=== PATIENT | male | born 1960 ===

== ENCOUNTER 2024-08-17 15:58 | Inpatient (IN) | payer OTHER ==
--- NOTE | 2024-08-17 18:16 | RAD REPORT ---
EXAMINATION: ONE VIEW CHEST XR CLINICAL INDICATION: Male, 64 years old.,CHEST PAIN TECHNIQUE: Frontal chest projection is submitted. Examination is limited by patient positioning and t echnique. COMPARISON: 03/11/2013 FINDINGS: The lungs are well inflated and clear. No pneumothorax or sizable effusion. The heart is normal in s ize. Mediastinal contours are unremarkable. IMPRESSION: No acute intrathoracic abnormalities.
[2024-08-17 19:17] LABS: Absolute Eosinophils 0.2 K/uL (0-0.5); Absolute Lymphocytes (CBC) 1.7 K/uL (0.7-4.9); Absolute Monocytes 0.5 K/uL (0.1-1.3); Absolute Neutrophil 3.6 K/uL (1.8-8.0); Basophils % 0.6 % (0-1.3); Eosinophils % 2.5 % (0-4.4); Hematocrit 39.2 % (39.6-49.0); Hemoglobin 13.1 g/dL (13.6-17.9); Lymphocytes % 28.9 % (15.3-44.8); MCH 29.9 pg (27.0-35.0); MCHC 33.4 g/dL (32.0-36.0); MCV 89.5 fL (80-100); MPV 7.6 fL (7.6-11.3); Platelets 211 thou/uL (152-406); RBC Red Blood Cell Count 4.38 M/uL (4.33-5.43); Red Cell Distribution Width 13.5 % (12.1-15.2)
[2024-08-17 19:24] LABS: Anion Gap 7.1 mEq/L (5.0-15.0); Potassium 3.1 mEq/L (3.5-5.1); Troponin High Sensitivity 8.8 pg/mL (<58.9)
--- NOTE | 2024-08-17 19:29 | ER ---
Nurse's Notes [facility] Name: Poli Ryder Age: 64 yrs Sex: Male : 1960 Arrival Date: 08/17/2024 Time: 15:58 Bed 26 Private MD: Diagnosis: Atrial Fibrillation Presentation: 08/17 16:58 Chief complaint: Patient states: "Dr. Mcqueen sent me here for A-fib". Pt reports me1 palpitations and feeling lightheaded and dizzy. 16:58 Coronavirus screen: At this time, the client does not indicate any symptoms associated aa5 with coronavirus-19. Ebola Screen: Patient denies travel to an Ebola-affected area in the 21 days before illness onset. Initial Sepsis Screen: Does the patient meet any 2 criteria? No. Patient's initial sepsis screen is negative. Does the patient have a suspected source of infection? No. Patient's initial sepsis screen is negative. Risk Assessment: Do you want to hurt yourself or someone else? Patient reports no desire to harm self or others. Onset of symptoms was August 17, 2024. 16:58 Method Of Arrival: Ambulatory aa5 16:58 Acuity: RAY 2 aa5 Triage Assessment: 17:10 General: Appears comfortable, Behavior is calm, cooperative. Neuro: Level of aa5 Consciousness is awake, alert, obeys commands, Oriented to person, place, time, situation. Cardiovascular: Rhythm is regular. Respiratory: Airway is patent Respiratory effort is even, unlabored, Respiratory pattern is regular, symmetrical. Derm: Skin is pink, warm \\T\\ dry. Historical: - Allergies: 16:58 No Known Allergies; aa5 - PMHx: 16:59 Hypertensive disorder; Hypercholesterolemia; Gout; Prostate Cancer; aa5 - PSHx: 16:59 Prostate removed; aa5 - Immunization history:: Adult Immunizations unknown. - Infectious Disease History:: Denies. - Social history:: Smoking status: Patient denies any tobacco usage or history of. Screenin:30 [facility] ED Fall Risk Assessment (Adult) History of falling in the last 3 months, me1 including since admission No falls in past 3 months (0 pts) Confusion or Disorientation No (0 pts) Intoxicated or Sedated No (0 pts) Impaired Gait No (0 pts) Mobility Assist Device Used No (0 pt) Altered Elimination No (0 pt) Score/Fall Risk Level 0 - 2 = Low Risk Maintained a safe environment, Provided non-skid footwear, Hourly rounding (assess needs \\T\\ fall precautionary measures) done. Abuse screen: Denies threats or abuse. Nutritional screening: No deficits noted. Tuberculosis screening: No symptoms or risk factors identified. Assessment: 19:30 General: Appears comfortable, well groomed, well developed, well nourished, Behavior is me1 calm, cooperative, appropriate for age, Reports "Dr. Mcqueen sent me here for A-fib". Pt reports palpitations and feeling lightheaded and dizzy. Pain: Denies pain. Neuro: Level of Consciousness is awake, alert, obeys commands, Oriented to person, place, time, situation, Appropriate for age Reports dizziness. Cardiovascular: Reports palpitations, Patient's skin is warm and dry. Respiratory: Airway is patent Trachea midline Respiratory effort is even, unlabored, Respiratory pattern is regular, symmetrical. GI: No signs and/or symptoms were reported involving the gastrointestinal system. : No signs and/or symptoms were reported regarding the genitourinary system. EENT: No signs and/or symptoms were reported regarding the EENT system. Derm: Skin is intact, is healthy with good turgor, Skin is pink, warm \\T\\ dry. Musculoskeletal: No signs and/or symptoms reported regarding the musculoskeletal system. Vital Signs: 16:58 BP 149 / 90; Pulse 75; Resp 18 S; Temp 98.3(O); Pulse Ox 100% on R/A; Weight 97.52 kg aa5 (R); Height 5 ft. 9 in. (R); 19:15 BP 145 / 81; Pulse 73; Resp 12; Pulse Ox 100% ; me1 16:58 Body Mass Index 31.75 (97.52 kg, 175.26 cm) aa5 ED Course: 16:04 Patient arrived in ED. mg5 16:33 Junaid Rae MD is Attending Physician. ec2 16:58 Arm band placed on. aa5 17:01 Triage completed. aa5 17:08 EKG completed in triage. Results shown to MD. aa5 18:14 XRAY Chest (1 view) In Process Unspecified. EDMS 18:27 Nicole Flor, MITRA is Primary Nurse. me1 18:59 Basic Metabolic Panel Sent. bc6 18:59 CBC with Diff Sent. bc6 19:00 Client placed on continuous cardiac and pulse oximetry monitoring. NIBP monitoring me1 applied. residential monitor on. Pulse ox on. NIBP on. 19:00 Troponin HS Sent. bc6 19:00 Initial lab(s) drawn, by me, sent to lab. Inserted saline lock: 20 gauge in left 6 antecubital area, using aseptic technique. Blood collected. Flushed with 10 mL NS. 19:28 Mitchell Acevedo MD is Hospitalizing Provider. ec2 19:30 Patient has correct armband on for positive identification. Bed in low position. Call me1 light in reach. Side rails up X2. Provided Education on: POC. Verbalized understanding.. 19:30 No provider procedures requiring assistance completed. me1 22:00 Patient admitted, IV remains in place. me1 Administered Medications: 19:56 Drug: Potassium Chloride PO 40 mEq PO once Route: PO; me1 21:22 Follow up: Response: No adverse reaction tx1 19:56 Drug: Sotalol PO 80 mg PO once Route: PO; me1 21:22 Follow up: Response: No adverse reaction me1 Medication: 19:30 VIS not applicable for this client. me1 Outcome: 19:28 Decision to Hospitalize by Provider. ec2 22:00 Admitted to ER Hold. Please see [facility] for further documentation. me1 22:00 Condition: stable 22:00 Instructed on the need for admit, 08/18 16:44 Patient left the ED. tx1 Signatures: Dispatcher [employer] EDMonika Dee RN RN aa5 Karen Mancilla 6 Nicole Flor RN RN me1 Minerva Wilson mg5 Junaid Rae MD MD ec2 Corrections: (The following items were deleted from the chart) 08/17 19:30 16:58 Chief complaint: Patient states: "Dr. Mcqueen sent me here for A-fib". Pt reports me1 palpitations and feeling lightheaded and dizzy. aa5
--- NOTE | 2024-08-17 19:29 | EDPHYS ---
Physician Documentation [facility] Name: Poli Ryder Age: 64 yrs Sex: Male : 1960 Arrival Date: 08/17/2024 Time: 15:58 Bed 26 Private MD: ED Physician Junaid Rae HPI: 08/17 17:08 This 64 yrs old Male presents to ER via Ambulatory with complaints of New onset ec2 A-fib-sent by Dr. Mcqueen. 17:08 Patient arrives today due to concern for A-fib with rapid ventricular response. He was ec2 reportedly at field recorder office where he was noted to have elevated heart rates and told to come to the ED. I discussed the case with cardiology prior to arrival, patient with rates in the 140s to 150s with appropriate blood pressures without a history of atrial fibrillation.. Historical: - Allergies: 16:58 No Known Allergies; aa5 - PMHx: 16:59 Hypertensive disorder; Hypercholesterolemia; Gout; Prostate Cancer; aa5 - PSHx: 16:59 Prostate removed; aa5 - Immunization history:: Adult Immunizations unknown. - Infectious Disease History:: Denies. - Social history:: Smoking status: Patient denies any tobacco usage or history of. ROS: 17:08 Constitutional: as per hpi ec2 Exam: 17:08 Constitutional: GEN: NAD Head: atraumatic Eyes: EOMI Ears: External ears are ec2 normal. CV: regular rate LUNGS: no respiratory distress ABD: non-distended SKIN: no evidence of rashes MSK: no evidence of trauma Vital Signs: 16:58 BP 149 / 90; Pulse 75; Resp 18 S; Temp 98.3(O); Pulse Ox 100% on R/A; Weight 97.52 kg aa5 (R); Height 5 ft. 9 in. (R); 19:15 BP 145 / 81; Pulse 73; Resp 12; Pulse Ox 100% ; me1 16:58 Body Mass Index 31.75 (97.52 kg, 175.26 cm) aa5 MDM: 17:02 Medical Screening Exam initiated ec2 17:08 Data reviewed: vital signs, nurses notes. ED course: Patient arrives today for reported ec2 arrhythmia. Examination is unrevealing. EKG obtained, independently reviewed and interpreted by me, shows a rate of 76, no acute ST segment elevations, intervals are nonactionable, rhythm is regular.. 19:27 ED course: Labs show slight hypokalemia. Will give the patient potassium, will also ec2 give 80 mg of sotalol per Dr. Mcqueen request. Will admit for A-fib with RVR that has since resolved. Discussed with hospitalist who agrees except the patient for admission.. 08/17 17:03 Order name: Basic Metabolic Panel; Complete Time: 19:27 ec2 08/17 17:03 Order name: CBC with Diff; Complete Time: 19:24 ec2 08/17 17:03 Order name: Troponin HS; Complete Time: 19:27 ec2 08/17 20:07 Order name: Urinalysis w/ reflexes EDMS 08/17 20:07 Order name: CBC with Automated Diff EDMS 08/17 20:07 Order name: CBC with Automated Diff EDMS 08/17 20:07 Order name: Comprehensive Metabolic Panel EDMS 08/17 20:07 Order name: Comprehensive Metabolic Panel EDMS 08/17 20:07 Order name: Magnesium EDMS 08/17 20:07 Order name: Magnesium EDMS 08/17 20:07 Order name: Phosphorus EDMS 08/17 20:07 Order name: Phosphorus EDMS 08/17 21:18 Order name: Glucose, Ancillary Testing EDMS 08/18 07:27 Order name: Glucose, Ancillary Testing EDMS 08/18 11:35 Order name: Glucose, Ancillary Testing EDMS 08/18 16:32 Order name: Glucose, Ancillary Testing EDMS 08/17 17:03 Order name: XRAY Chest (1 view); Complete Time: 18:17 ec2 08/17 17:03 Order name: EKG; Complete Time: 17:03 ec2 08/17 17:03 Order name: Cardiac monitoring; Complete Time: 19:00 ec2 08/17 17:03 Order name: EKG - Nurse/Tech; Complete Time: 17:08 ec2 08/17 17:03 Order name: IV Saline Lock; Complete Time: 18:59 ec2 08/17 17:03 Order name: Labs collected and sent; Complete Time: 18:59 ec2 08/17 17:03 Order name: O2 Per Protocol; Complete Time: 19:00 ec2 08/17 17:03 Order name: O2 Sat Monitoring; Complete Time: 19:00 ec2 Administered Medications: 19:56 Drug: Potassium Chloride PO 40 mEq PO once Route: PO; me1 21:22 Follow up: Response: No adverse reaction me1 19:56 Drug: Sotalol PO 80 mg PO once Route: PO; me1 21:22 Follow up: Response: No adverse reaction me1 Disposition Summary: 08/17/24 19:28 Hospitalization Ordered Notes: Hospitalization Status: Inpatient Admission ec2 Provider: Mitchell Acevedo ec2 Condition: Stable ec2 Problem: new ec2 Symptoms: have improved ec2 Bed/Room Type: Standard ec2 Location: Telemetry/MedSurg (Inpatient)(08/18/24 15:54) bd Room Assignment: 230(08/18/24 15:54) bd Diagnosis - Atrial Fibrillation ec2 Forms: - Medication Reconciliation Form ec2 - SBAR form ec2 - Leadership Thank You Letter ec2 Signatures: Dispatcher [employer] EDMS Vidya Morgan Audri, RN RN aa5 Deloris Rooney rv1 Nicole Flor RN RN me1 Junaid Rae MD MD ec2 Corrections: (The following items were deleted from the chart) 20:08 19:28 Telemetry/MedSurg (Inpatient) ec2 rv1 20:08 19:28 ec2 rv1 08/18 15:54 12 20:08 [facility] ER HOLD rv1 bd 08/18 15:54 12 20:08 ERHOLD- rv1 bd
[2024-08-17] MEDS ORDERED: SOTALOL HCL 80 MG TAB ONE (19:52)
[2024-08-17] MEDS ORDERED: POTASSIUM CL SA 10 MEQ TAB PO ONE (19:52)
[2024-08-17] MEDS ORDERED: ONDANSETRON 4 MG/2 ML VIAL IV PRN (20:02)
[2024-08-17] MEDS ORDERED: ACETAMINOPHEN 325 MG TABLET PO PRN (20:02)
[2024-08-17] MEDS ORDERED: D10W 125 ML IV PRN (20:06)
[2024-08-17] MEDS ORDERED: GLUCAGON 1 MG/VIAL IM PRN (20:06)
--- NOTE | 2024-08-17 20:08 | P.HP ---
Certification for Inpatient Patient admitted to: Inpatient With expected LOS: >2 Midnights Practitioner: I am a practitioner with admitting privileges, knowledge of patient current condition, hospital course, and medical plan of care. Services: Services provided to patient in accordance with Admission requirements found in Title 42 Section 412.3 of the Code of Federal Regulations Patient History Date of Service: 08/17/24 Reason for admission: Afib History of Present Illness: 64 yrs old Male with past medical history of hypertension, hyperlipidemia, gout, prostate cancer status post prostatectomy came to ER with palpitations. Patient was seen by Dr. Mcqueen in the office and was noted to have A-fib with RVR and was sent over here for further management. The patient's heart rate initially was 140s to 150s. Patient did not had any previous history of A-fib. To be started on sotalol by material handler 1st shift. Patient denies any chest pain or shortness of breath. No nausea vomiting diarrhea. Patient was assessed in the ER and was admitted for further management of paroxysmal atrial fibrillation Allergies No Known Allergies Allergy (Unverified 03/11/13 04:32) Home medications list reviewed: Yes Home Medications: Allopurinol 300 mg PO DAILY 03/11/13 Aspirin [Children's Aspirin] 81 mg PO DAILY 03/11/13 Atorvastatin Calcium [Lipitor*] 20 mg PO BEDTIME 03/11/13 Potassium Chloride [Klor-Con] meq PO DAILY 03/11/13 Metoprolol Succinate [Toprol Xl*] 50 mg PO DAILY #30 tab 03/12/13 - Past Medical/Surgical History Diabetic: No Past Medical History: Reviewed- Non-Contributory -: Htn -: High lipids -: Gout -: Kidney stones Past Surgical History: Reviewed- Non-Contributory -: cyst removed from pinky on rt hand - Family History Family History: Reviewed- Non-Contributory - Social History Smoking Status: Never smoker Alcohol use: No CD- Drugs: No Caffeine use: No Review of Systems 10-point ROS is otherwise unremarkable Physical Examination - Vital Signs Temperature: 97.8 F Blood Pressure: 146/80 Pulse: 72 Respirations: 18 Pulse Ox (%): 94 - Physical Exam General: Alert, In no apparent distress, Oriented x3 HEENT: Atraumatic, Normocephalic Neck: Supple, No Thyromegaly Respiratory: Clear to auscultation bilaterally, Normal air movement Cardiovascular: Regular rate/rhythm, Normal S1 S2 Capillary refill: <2 Seconds Gastrointestinal: Soft and benign, W/out hepatosplenomegaly Musculoskeletal: No clubbing, No swelling Integumentary: No rashes Neurological: Normal speech, Normal strength at 5/5 x4 extr, Cranial nerves 3-12 intact, Normal reflexes 2+ Lymphatics: No axilla or inguinal lymphadenopathy - Studies Laboratory Data (last 24 hrs) 08/17/24 08/17/24 18:55 18:55 WBC 6.00 Hgb 13.1 L Hct 39.2 L Plt Count 211 Sodium 139 Potassium 3.1 L BUN 14 Creatinine 0.87 Glucose 86 Assessment and Plan - Plan Paroxysmal atrial fibrillation Will consult cardiology Monitor closely on telemetry Rate controlled now May need anticoagulation Possibly starting on sotalol Electrolytes monitor and replace accordingly Hypertension Antihypertensives titrated Continue home medications and titrate as needed Hyperlipidemia Continue statin Prostate cancer status post prostatectomy Followed by urology GI/DVT prophylaxis Advanced directive full code Discharge Plan: Home Plan to discharge in: 48 Hours - Advance Directives Does patient have a Living Will: No Does patient have a Durable POA for Healthcare: No - Code Status/Comfort Care Code Status: Full Code Time Spent Managing Pts Care (In Minutes): 48
[2024-08-17 20:42] VITALS: BMI 31.7
[2024-08-17] MEDS: INSULIN REGULAR (HUMAN) 100 UNIT/ML SQ SCH (21:00)
[2024-08-17 21:54] LABS: Specific Gravity 1.021 (1.005-1.030); Sqamous Epithelial <5 /HPF (None Seen); Urine Bacteria None Seen /HPF (<20); Urine Bilirubin NEGATIVE (Negative); Urine Blood Negative (Negative); Urine Clarity Extremely Turbid (Clear); Urine Color Yellow (Yellow); Urine Crystals Unidentified Few /HPF (None Seen); Urine Culture Reflex Order REFLEXED; Urine Glucose NEGATIVE (Negative); Urine Ketones NEGATIVE (Negative); Urine Microscopic Reflex YN ORDER UMIC; Urine Mucus Slight /HPF (None Seen); Urine Nitrite NEGATIVE (Negative); Urine Protein TRACE (Negative); Urine Urobilinogen Normal (Normal); Urine WBC >50 /HPF (<5); Urine WBC Clump Rare /HPF (None Seen); Urine Yeast (Budding) Few /HPF (None Seen); Urine pH 6.5 (5.0-7.0)
[2024-08-18] MEDS: CEFTRIAXONE 1,000 MG in NA CHLORIDE 0.9% 50 ML IVPB SCH (00:27)
[2024-08-18] MEDS ORDERED: NA CHLORIDE 0.9% 50 ML ONE (00:28)
[2024-08-18] MEDS ORDERED: CEFTRIAXONE 1000 MG/VIAL ONE ×2 (00:28→07:53)
[2024-08-18 05:27] LABS: Absolute Eosinophils 0.1 K/uL (0-0.5); Absolute Lymphocytes (CBC) 1.4 K/uL (0.7-4.9); Absolute Monocytes 0.5 K/uL (0.1-1.3); Absolute Neutrophil 2.9 K/uL (1.8-8.0); Basophils % 0.4 % (0-1.3); Eosinophils % 2.8 % (0-4.4); Hematocrit 33.9 % (39.6-49.0); Hemoglobin 11.9 g/dL (13.6-17.9); Lymphocytes % 27.8 % (15.3-44.8); MCH 30.8 pg (27.0-35.0); MCV 87.9 fL (80-100); MPV 7.4 fL (7.6-11.3); Monocytes % 10.2 % (3.3-12.3); Neutrophils % 58.8 % (41.7-73.7); Nucleated Red Blood Cells % 0.1 % (0-0); Platelets 213 thou/uL (152-406); RBC Red Blood Cell Count 3.86 M/uL (4.33-5.43); Red Cell Distribution Width 13.3 % (12.1-15.2)
[2024-08-18 05:42] LABS: Albumin/Globulin Ratio 0.9 (1.1-1.8); Anion Gap 6.7 mEq/L (5.0-15.0); Bilirubin Total 0.5 mg/dL (0.2-1.0); Globulin 3.5 g/dL (2.3-3.5); Magnesium 2.1 mg/dL (1.6-2.4); Phosphorus 3.5 mg/dL (2.5-4.9); Potassium 3.7 mEq/L (3.5-5.1); Protein, Total 6.5 g/dL (6.4-8.2)
[2024-08-18] MEDS ORDERED: ENOXAPARIN 40 MG/0.4 ML SQ ONE (07:53)
[2024-08-18] MEDS: ENOXAPARIN 40 MG/0.4 ML SQ SCH (08:18)
[2024-08-18] MEDS: SOTALOL HCL 80 MG TAB PO SCH (09:00)
[2024-08-18] MEDS ORDERED: SOTALOL HCL 80 MG TAB ONE (09:59)
--- NOTE | 2024-08-18 11:43 | P.CNS ---
Date of Consult: 08/18/24 Chief Complaint: Afib History of Present Illness: Patient with PMH of HTN, was admitted from cardiology clinic for palpitations, found to be in AF with RVR, denies chest pain, no syncope. Allergies No Known Allergies Allergy (Unverified 03/11/13 04:32) Home medications list reviewed: Yes Home Medications: Aspirin [Children's Aspirin] 81 mg PO DAILY 03/11/13 Atorvastatin Calcium [Lipitor*] 40 mg PO BEDTIME 03/11/13 Metoprolol Succinate [Toprol Xl*] 50 mg PO DAILY #30 tab 03/12/13 Cefpodoxime Proxetil [Vantin] 200 mg PO BID 08/18/24 Losartan Potassium [Cozaar] 25 mg PO DAILY 08/18/24 Tirzepatide [Mounjaro] 7.5 mg SQ DIRECTED 08/18/24 tadalafiL [Cialis] 5 mg PO DAILY 08/18/24 - Past Medical/Surgical History Diabetic: No -: Htn -: High lipids -: Gout -: Kidney stones -: cyst removed from pinky on rt hand - Social History Smoking Status: Never smoker Alcohol use: No CD- Drugs: No Caffeine use: No Review of Systems 10-point ROS is otherwise unremarkable Physical Examination Temp Pulse Resp BP Pulse Ox 98.0 F 92 H 18 120/80 97 08/18/24 08:00 08/18/24 08:00 08/18/24 08:00 08/18/24 08:00 08/18/24 08:00 General: Alert, In no apparent distress HEENT: Atraumatic, PERRLA, Mucous membr. moist/pink, EOMI, Sclerae nonicteric Neck: Supple, 2+ carotid pulse no bruit, No LAD, Without JVD or thyroid abnormality Respiratory: Clear to auscultation bilaterally, Normal air movement Cardiovascular: Regular rate/rhythm, Normal S1 S2 Gastrointestinal: Normal bowel sounds, No tenderness Musculoskeletal: No tenderness Integumentary: No rashes Neurological: Normal gait, Normal speech, Normal tone, Normal affect Lymphatics: No axilla or inguinal lymphadenopathy Laboratory Data (last 24 hrs) 08/17/24 08/17/24 18:55 18:55 WBC 6.00 Hgb 13.1 L Hct 39.2 L Plt Count 211 Sodium 139 Potassium 3.1 L BUN 14 Creatinine 0.87 Glucose 86 - Problems (1) Atrial fibrillation Current Visit: Yes Status: Acute Plan: paroxysmal, patient is now in sinus rhythm continue Sotalol 80 mg po BID (EKG after 3rd dose) start Eliquis 5 mg po BID (2) HTN (hypertension) Current Visit: Yes Status: Acute Plan: reconcile and continue home medications.
--- NOTE | 2024-08-18 13:57 | P.PN ---
Subjective Date of Service: 08/18/24 Chief Complaint: Afib Subjective: Improving Patient converted to normal sinus rhythm after 1 dose of sotalol at emergency room last night. He denied any chest pain or shortness of breath or dizziness. He has no history of bleeding diathesis, no bleeding peptic ulcer or recent surgery. Review of Systems Other: Consitutional; fever(-), chills (-), rigor(-), night sweat(-), unintentional weight loss(-) HEENT; diplopia (-), rhinorrhea (-), epistaxis (-), otorrhea (-), otalgia (-) Respiratory; shortness of breath (-), wheezing (-), cough (-), sputum (-), pleuritic chest pain (-) Cardiovascular; chest pain (-), peripheral edema (-), paroxysmal nocturnal dyspnea (-), orthopnea (-) Gastrointestinal; nausea (-), vomiting (-), abdominal pain (-), diarrhea (-), constipation (-), melena (-), hematochezia (-) Urinary; urinary frequency (-), dysuria (-), urgency (-), flank pain (-), gross hematuria (-), incontinence (-) Skin; rash (-), pruritus (-) HEEL BREASTER; headache (-), paresthesia (-), numbness (-), paralysis (-) Physical Examination - Vital Signs Temperature: 98.4 F Blood Pressure: 139/79 Pulse: 82 Respirations: 16 Pulse Ox (%): 98 - Physical Exam Other Physical/Emotional Findings: - Physical Exam. General: Not acutely ill looking, in no apparent distress,. HEENT: Normocephalic, atraumatic, nonicteric sclera, nonanemic conjunctive. Neck: Supple, without JVD or goiter or thyroid mass. Respiratory: Normal breathing effort, clear to auscultation bilaterally, no crackles no wheezing or rhonchi. Cardiovascular: Regular rate and rhythm, S1, S2 normal, no murmur no gallop. Gastrointestinal: Normal bowel sounds, nondistended, nontender, No ascites, , No masses, no hepatosplenomegaly. Extremities l: No clubbing, No peripheral edema, full range of motion, no deformity, no muscle atrophy. Integumentary: No rashes, petechia, suspected lesions. Lymphatics: No axilla or cervical lymphadenopathy. Neurology; alert awake oriented x3, no focal neurologic deficit, normal affection . mood and behavior. - Studies Laboratory Data (last 24 hrs) 08/17/24 08/17/24 18:55 18:55 WBC 6.00 Hgb 13.1 L Hct 39.2 L Plt Count 211 Sodium 139 Potassium 3.1 L BUN 14 Creatinine 0.87 Glucose 86 Assessment And Plan - Plan This is a 64 yrs old Male with past medical history of hypertension, hyperlipidemia, gout, prostate cancer status post prostatectomy came to ER with palpitations. Patient was seen by Dr. Mcqueen in the office and was noted to have A-fib with RVR and was sent over here for further management. The patient's heart rate initially was 140s to 150s. Patient did not had any previous history of A-fib. To be started on sotalol by senior cyber security analyst. Patient denies any chest pain or shortness of breath. #1 new onset atrial fibrillation Converted to normal sinus rhythm, will continue sotalol 80 mg twice daily, resume metoprolol succinate, I will order thyroid function test and transthoracic echocardiogram. CADS VASc score is 1, no contraindication to anticoagulation, continue cardiac monitor technician
[2024-08-18] MEDS ORDERED: SOTALOL HCL 80 MG TAB PO SCH (18:00)
[2024-08-18] MEDS: APIXABAN 5 MG TABLET PO SCH (20:36)
[2024-08-18 21:23] VITALS: O2SAT 94
[2024-08-19 04:51] LABS: PT Prothrombin Time 14.5 SECONDS (9.4-12.5); Protime INR 1.3
[2024-08-19 05:04] LABS: Thyroid Stimulating Hormone 1.55 uIU/mL (0.358-3.740)
[2024-08-19] MEDS: METOPROLOL XL 50 MG TAB PO SCH (06:15)
[2024-08-19 08:48] VITALS: BP 149/78; TEMP 98.4
--- NOTE | 2024-08-19 10:51 | P.DS ---
Admission Date: 08/17/24 Discharge Date: 08/19/24 Disposition: ROUTINE DISCHARGE Discharge Condition: GOOD Reason for Admission: Afib Brief History of Present Illness: This is a 64 yrs old Male with past medical history of hypertension, h yperlipidemia, gout, prostate cancer status post prostatectomy came to ER with palpitations. Patient was seen by mathematics academic chair, Dr. Mcqueen in the office and was noted to have A-fib with RVR and was sent over here for further management. The patient's heart rate initially was 140s to 150s. Patient did not had any previous history of A-fib. To be started on sotalol by mathematics academic chair. Patient denies any chest pain or shortness of breath. Hospital Course: He was converted to normal sinus rhythm after 1 dose of sotalol. He remained in normal sinus rhythm on telemetry on 80 mg twice daily sotalol and 50 mg metoprolol XL. he has no sign of heart failure clinically as well as chest x- ray. His CADS VASc score is 1, he has no contraindication to anticoagulation, He is started on apixaban 5 mg twice daily. His thyroid function test came back normal. Transthoracic echocardiogram was done however result was pending at the time of discharge. He is scheduled for outpatient stress test the following day. He will follow-up with his mathematics academic chair at his clinic for the results of transthoracic echocardiogram. He was sent home in stable condition. #1 new onset paroxysmal atrial fibrillation with rapid ventricle response, resolved #2 well-controlled hypertension Vital Signs/Physical Exam: Temp Pulse Resp BP Pulse Ox 98.4 F 82 16 149/78 H 98 08/19/24 08:00 08/19/24 08:00 08/19/24 08:00 08/19/24 08:00 08/19/24 08:00 Other Physical/Emotional Findings: - Physical Exam. General: Not acutely ill looking, in no apparent distress,. HEENT: Normocephalic, atraumatic, nonicteric sclera, nonanemic conjunctive. Neck: Supple, without JVD or goiter or thyroid mass. Respiratory: Normal breathing effort, clear to auscultation bilaterally, no crackles no wheezing or rhonchi. Cardiovascular: Regular rate and rhythm, S1, S2 normal, no murmur no gallop. Gastrointestinal: Normal bowel sounds, nondistended, nontender, No ascites, , No masses, no hepatosplenomegaly. Extremities l: No clubbing, No peripheral edema, full range of motion, no deformity, no muscle atrophy. Integumentary: No rashes, petechia, suspected lesions. Lymphatics: No axilla or cervical lymphadenopathy. Neurology; alert awake oriented x3, no focal neurologic deficit, normal affection . mood and behavior. Laboratory Data at Discharge: WBC 5.00 thou/uL (4.3-10.9) 08/18/24 04:30 Hgb 11.9 g/dL (13.6-17.9) L D 08/18/24 04:30 Hct 33.9 % (39.6-49.0) L 08/18/24 04:30 Plt Count 213 thou/uL (152-406) 08/18/24 04:30 PT 14.5 SECONDS (9.4-12.5) H 08/19/24 04:23 INR 1.30 08/19/24 04:23 APTT 31.0 SECONDS (24.3-36.9) 08/19/24 04:23 Sodium 140 mEq/L (136-145) 08/18/24 04:30 Potassium 3.7 mEq/L (3.5-5.1) D 08/18/24 04:30 BUN 14 mg/dL (7-18) 08/18/24 04:30 Creatinine 0.85 mg/dL (0.70-1.30) 08/18/24 04:30 Glucose 100 mg/dL (74-106) 08/18/24 04:30 Phosphorus 3.5 mg/dL (2.5-4.9) 08/18/24 04:30 Magnesium 2.1 mg/dL (1.6-2.4) 08/18/24 04:30 Total Bilirubin 0.5 mg/dL (0.2-1.0) 08/18/24 04:30 AST 27 U/L (15-37) 08/18/24 04:30 ALT 36 U/L (16-61) 08/18/24 04:30 Alkaline Phosphatase 58 U/L (45-117) 08/18/24 04:30 Home Medications: Aspirin [Children's Aspirin] 81 mg PO DAILY 03/11/13 Atorvastatin Calcium [Lipitor*] 40 mg PO BEDTIME 03/11/13 Metoprolol Succinate [Toprol Xl*] 50 mg PO DAILY #30 tab 03/12/13 Losartan Potassium [Cozaar] 25 mg PO DAILY 08/18/24 Tirzepatide [Mounjaro] 7.5 mg SQ DIRECTED 08/18/24 tadalafiL [Cialis] 5 mg PO DAILY 08/18/24 Apixaban [Eliquis] 5 mg PO BID 30 Days #60 08/19/24 Metoprolol Succinate [Toprol Xl*] 50 mg PO [id number] tab 08/19/24 Sotalol HCl [Betapace*] 80 mg PO BID 6AM 6PM 30 Days #60 tab 08/19/24 New Medications: Sotalol HCl [Betapace*] 80 mg PO BID 6AM 6PM 30 Days #60 tab Apixaban [Eliquis] 5 mg PO BID 30 Days #60 Diet: AHA Activity: [place] Followup: Enrrique Malhotra MD [Primary Care Provider] -
--- NOTE | 2024-08-19 14:51 | ECHO ---
HEIGHT: 5 ft 9 in WEIGHT: 214 lb 15.917 oz DATE OF STUDY: 08/19/[address]: KEV Villarreal MD 2-DIMENSIONAL: YES M.MODE: YES DOPPLER: YES COLOR FLOW: YES TDS: NO PORTABLE: YES DEFINITY: NO BUBBLE STUDY: NO DIAGNOSIS: NEW ONSET ATRIAL FIBRILLATION CARDIAC HISTORY: CATHERIZATION: SURGERY: PROSTHETIC VALVE: PACEMAKER: MEASUREMENTS (cm) DIASTOLIC (NORMALS) SYSTOLIC (NORMALS) IVSd 1.0 (0.6-1.2) LA Diam 4.1 (1.9-4.0) LVEF 54% LVIDd 5.3 (3.5-5.7) LVIDs 3.8 (2.0-3.5) %FS 28% LVPWd 1.0 (0.6-1.2) Ao Diam 3.5 (2.0-3.7) 2 DIMENSIONAL ASSESSMENT: RIGHT ATRIUM: NORMAL LEFT ATRIUM: NORMAL RIGHT VENTRICLE: NORMAL LEFT VENTRICLE: NORMAL TRICUSPID VALVE: TRACE OF TRICUSPID REGURGITATION MITRAL VALVE: NORMAL PULMONIC VALVE: NORMAL AORTIC VALVE: NORMAL PERICARDIAL EFFUSION: NONE AORTIC ROOT: NORMAL LEFT VENTRICULAR WALL MOTION: NORMAL. DOPPLER/COLOR FLOW: NORMAL. COMMENTS: 1. NORMAL LEFT VENTRICULAR SYSTOLIC FUNCTION, 55-60%, NORMAL WALL MOTION. 2. NORMAL DIASTOLIC FUNCTION. TECHNOLOGIST: JASWANT SOLIS
== END 2024-08-19 12:03 | disposition home or self-care (01) | DRG 310 ==
LOC: ER 15:58 → ERHOLD 20:02 → 2ND 08-18 16:31
PROVIDERS: ADMIT Family Medicine; ATTEND Internal Medicine
DX: I48.0 Paroxysmal atrial fibrillation (principal); E87.6 Hypokalemia; I10 Essential (primary) hypertension; E78.00 Pure hypercholesterolemia, unspecified; M10.9 Gout, unspecified; Z79.82 Long term (current) use of aspirin; Z79.01 Long term (current) use of anticoagulants; Z90.79 Acquired absence of other genital organ(s); Z85.46 Personal history of malignant neoplasm of prostate; Z79.899 Other long term (current) drug therapy
CPT/HCPCS: 36415; 71045; 80048; 80053; 81001; 82947; 83735; 84100; 84439; 84443; 84484; 85025; 85610; 85730; 87086; 87088; 93306; 94760; 99285; J0696; J1650

== ENCOUNTER 2024-11-12 18:47 | Emergency (ER) | payer OTHER ==
[2024-11-12 19:38] LABS: Absolute Basophils 0.1 K/uL (0-0.5); Absolute Eosinophils 0.1 K/uL (0-0.5); Absolute Lymphocytes (CBC) 1.1 K/uL (0.7-4.9); Absolute Monocytes 0.7 K/uL (0.1-1.3); Absolute Neutrophil 7.1 K/uL (1.8-8.0); Basophils % 0.8 % (0-1.3); Hematocrit 38.5 % (39.6-49.0); Hemoglobin 13.5 g/dL (13.6-17.9); MCH 31.1 pg (27.0-35.0); MCV 88.8 fL (80-100); MPV 7.8 fL (7.6-11.3); Monocytes % 7.9 % (3.3-12.3); Neutrophils % 78.3 % (41.7-73.7); Platelets 184 thou/uL (152-406); RBC Red Blood Cell Count 4.33 M/uL (4.33-5.43); Red Cell Distribution Width 14.8 % (12.1-15.2)
[2024-11-12 19:52] LABS: Specific Gravity 1.014 (1.005-1.030); Sqamous Epithelial <5 /HPF (None Seen); Urine Bacteria <20 /HPF (<20); Urine Bilirubin NEGATIVE (Negative); Urine Blood 3+ (OVER) (Negative); Urine Clarity Extremely Turbid (Clear); Urine Color Yellow (Yellow); Urine Culture Reflex Order NOT NEEDED; Urine Glucose NEGATIVE (Negative); Urine Ketones NEGATIVE (Negative); Urine Microscopic Reflex YN ORDER UMIC; Urine Mucus Slight /HPF (None Seen); Urine Nitrite NEGATIVE (Negative); Urine Protein TRACE (Negative); Urine RBC >50 /HPF (None Seen); Urine Urobilinogen Normal (Normal); Urine WBC <5 /HPF (<5); Urine pH 6.5 (5.0-7.0)
[2024-11-12 19:54] LABS: Albumin 3.7 g/dL (3.4-5.0); Anion Gap 8.8 mEq/L (5.0-15.0); Bilirubin Total 0.9 mg/dL (0.2-1.0); Globulin 3.8 g/dL (2.3-3.5); Protein, Total 7.5 g/dL (6.4-8.2)
--- NOTE | 2024-11-12 20:01 | RAD REPORT ---
EXAMINATION: CT ABDOMEN AND PELVIS WITHOUT CONTRAST- stone protocol CLINICAL INDICATION: Male, 64 years old.FLANK PAIN TECHNIQUE: CT abdomen and pelvis was performed using a stone protocol, without IV contrast, as per de partment protocol. Axial, sagittal and coronal reconstructions were obtained. One or more of the following dose reduction techniques were used: Automated exposure control, adjustment of the mA and/o r kV according to the patient size, and/or iterative reconstruction. Unless otherwise specified, incidental findings do not require dedicated imaging follow-up. [id number]. IV CONTRAST: Not administered. COMPARISON: None FINDINGS: The lack of intravenous contrast limits the sensitivity of this exam for evaluation of solid visceral organs, vascular structures, and retroperitoneum. LOWER CHEST: No acute process identified.No significant pericardial effusion. UPPER GI: No significant abnormality. LIVER: Benign appearing low density liver lesions. No suspicious mass. GALLBLADDER/BILE DUCTS: Cholelithiasis without CT evidence of acute cholecystitis.? PANCREAS: No mass, ductal dilation, or adrlene-pancreatic fluid. SPLEEN: Unremarkable. ADRENALS: No adrenal masses. KIDNEYS AND URETERS: Mild left-sided hydronephrosisLimited evaluation for renal lesions in the absenc e of IV contrast.3 mm stone in the right kidney.5 mm stone in the left proximal ureter just beyond the UPJ. ABDOMINAL AORTA AND OTHER VESSELS: Moderate atherosclerotic changes without aortic aneurysm. PERITONEUM: No abnormal free fluid. No free air. LYMPH NODES: No pathologic lymphadenopathy. ABDOMINAL WALL: Unremarkable SMALL BOWEL/COLON: Small bowel has normal course and caliber. No colonic wall thickening or pericolon ic inflammatory changes. URINARY BLADDER: Circumferential thickened bladder wall. This is likely treatment related. REPRODUCTIVE ORGANS: Prostatectomy MUSCULOSKELETAL: Multilevel degenerative changes in the spine. No acute fracture. ADDITIONAL FINDINGS: None. IMPRESSION: Mild left-sided hydronephrosis secondary to a 5 mm stone in the left proximal ureter.
[2024-11-12 20:30] LABS: Potassium 3.8 mEq/L (3.5-5.1)
--- NOTE | 2024-11-12 20:39 | ER ---
Nurse's Notes [facility] Name: Poli Ryder Age: 64 yrs Sex: Male : 1960 Arrival Date: 11/12/2024 Time: 18:47 Bed 11 Private MD: Diagnosis: Calculus of kidney with calculus of ureter Presentation: 11/12 19:04 Chief complaint: Patient states: LEFT SIDED GROIN PAIN THAT RADIATES TO LEFT FLANKS jj7 STARTED THIS MORNING. BLOOD IN URINE X2 DAY AND N/V STARTED TODAY. HAD KIDNEY STONES 30 YEARS AGO AND THIS FEELS THE SAME. Coronavirus screen: At this time, the client does not indicate any symptoms associated with coronavirus-19. Ebola Screen: No symptoms or risks identified at this time. Initial Sepsis Screen: Does the patient meet any 2 criteria? No. Patient's initial sepsis screen is negative. Does the patient have a suspected source of infection? No. Patient's initial sepsis screen is negative. Risk Assessment: Do you want to hurt yourself or someone else? Patient reports no desire to harm self or others. Onset of symptoms was November 10, 2024. 19:04 Method Of Arrival: Ambulatory j7 Triage Assessment: 19:09 General: Appears in no apparent distress. comfortable, Behavior is calm, cooperative, jj7 appropriate for age. Pain: Complains of pain in left femoral area and left inguinal area Pain radiates to anterior aspect of left lateral abdomen and posterior aspect of left lateral abdomen Pain currently is 3 out of 10 on a pain scale. at worst was 10 out of 10 on a pain scale. GI: Reports nausea, vomiting. : Reports HEMATURIA. Historical: - Allergies: 19:09 No Known Allergies; jj7 - PMHx: 19:09 Gout; Hypercholesterolemia; Hypertensive disorder; Prostate Cancer; Diabetes mellitus; jj7 - PSHx: 19:09 prostate removed; jj7 - Immunization history:: Adult Immunizations up to date. - Infectious Disease History:: Denies. - Social history:: Smoking status: Patient denies any tobacco usage or history of. Patient/guardian denies using alcohol, street drugs, IV drugs. Screenin:12 [facility] ED Fall Risk Assessment (Adult) History of falling in the last 3 months, jj7 including since admission No falls in past 3 months (0 pts) Confusion or Disorientation No (0 pts) Intoxicated or Sedated No (0 pts) Impaired Gait No (0 pts) Mobility Assist Device Used No (0 pt) Altered Elimination No (0 pt) Score/Fall Risk Level 0 - 2 = Low Risk Oriented to surroundings, Maintained a safe environment, Educated pt \T\ family on fall prevention, incl call for assistance when getting out of bed. Abuse screen: Denies threats or abuse. Nutritional screening: No deficits noted. Tuberculosis screening: No symptoms or risk factors identified. Assessment: 19:40 General: Appears in no apparent distress. comfortable, Behavior is calm, cooperative, cp4 appropriate for age. Pain: Complains of pain in abdomen and posterior aspect of left lateral abdomen and anterior aspect of left lateral abdomen and pelvis and left inguinal area and left femoral area Pain currently is 3 out of 10 on a pain scale. Neuro: Level of Consciousness is awake, alert, obeys commands, Oriented to person, place, time, situation. Cardiovascular: Patient's skin is warm and dry. Respiratory: Airway is patent Respiratory effort is even, unlabored. GI: Bowel sounds present X 4 quads. Abd is soft and non tender X 4 quads. : Parent/caregiver report the patient having possible kidney stone. EENT: No signs and/or symptoms were reported regarding the EENT system. Derm: No signs and/or symptoms reported regarding the dermatologic system. Musculoskeletal: No signs and/or symptoms reported regarding the musculoskeletal system. 20:53 Reassessment: Patient appears in no apparent distress at this time. No changes from lg3 previously documented assessment. Patient and/or family updated on plan of care and expected duration. Pain level reassessed. Patient is alert, oriented x 3, equal unlabored respirations, skin warm/dry/pink. Vital Signs: 19:04 BP 181 / 107; Pulse 89; Resp 20; Temp 98.5; Pulse Ox 100% ; Weight 95.25 kg; Height 5 jj7 ft. 9 in. ; Pain 3/10; 20:54 BP 173 / 91; Pulse 77; Resp 17 S; Pulse Ox 100% on R/A; lg3 19:04 Body Mass Index 31.01 (95.25 kg, 175.26 cm) [facility] 19:04 Pain Scale: Adult [facility] ED Course: 18:48 Patient arrived in ED. jj6 18:49 Brown, Iman, PA-C is [facility]. sb4 18:49 Pawel Kebede MD is Attending Physician. sb4 19:09 Arm band placed on right wrist. Patient placed in an exam room, on a stretcher. jj7 19:12 Patient has correct armband on for positive identification. Bed in low position. Call jj7 light in reach. Provided Education on: USE OF CALL MONTEIRO. 19:39 France Johnson is Primary Nurse. cp4 19:40 Stone Protocol In Process Unspecified. EDMS 19:40 No provider procedures requiring assistance completed. cp4 20:38 Elroy Arellano MD is Referral Physician. sb4 20:54 Patient did not have IV access during this emergency room visit. lg3 Administered Medications: 20:41 Not Given (Physician Discretion): TORadol - [id number] mg IVP once sb4 20:41 Not Given (Physician Discretion): ondansetron 4 mg IVP once; over 2 minutes sb4 20:41 Not Given (Physician Discretion): ns 0.9% 1000 ml IV at 1 bolus Per protocol; to be sb4 given as a bolus over 60 minutes Medication: 19:40 VIS not applicable for this client. cp4 Outcome: 20:39 Discharge ordered by MD. sb4 20:54 Discharged to home ambulatory, lg3 20:54 Condition: stable 20:54 Discharge instructions given to patient, Instructed on discharge instructions, follow up and referral plans. medication usage, Demonstrated understanding of instructions, follow-up care, medications, Prescriptions given X 2, 20:57 Patient left the ED. lg3 Signatures: Dispatcher [employer] EDHeather Lind RN RN lg3 Vi Monsalve jj6 Mateusz Bear RN RN jj7 Iman Combs PA-C PA-C sb4 France Johnson cp4
--- NOTE | 2024-11-12 20:39 | EDPHYS ---
Physician Documentation [facility] Name: Poli Ryder Age: 64 yrs Sex: Male : 1960 Arrival Date: 11/12/2024 Time: 18:47 Bed 11 Private MD: ED Physician Pawel Kebede HPI: 11/12 19:26 This 64 yrs old Unknown Male presents to ER via Ambulatory with complaints of Possible sb4 Kidney Stone. 19:27 left flank pain beginning yesterday, started radiating to left groin today. has also sb4 had blood in the urine. urologist ordered stat CT stone protocol but the authorization did not go through during office hours. states the pain comes and goes, does not currently have any pain. feels similar to when he had a kidney stone 30 years ago, has had intermittent n/v. Historical: - Allergies: 19:09 No Known Allergies; jj7 - PMHx: 19:09 Gout; Hypercholesterolemia; Hypertensive disorder; Prostate Cancer; Diabetes mellitus; jj7 - PSHx: 19:09 prostate removed; jj7 - Immunization history:: Adult Immunizations up to date. - Infectious Disease History:: Denies. - Social history:: Smoking status: Patient denies any tobacco usage or history of. Patient/guardian denies using alcohol, street drugs, IV drugs. ROS: 19:27 Constitutional: Negative for fever, chills, and weight loss, sb4 19:27 Back: Positive for flank pain, on the left, 19:27 : Positive for hematuria, 19:27 All other systems are negative, Exam: 19:27 Constitutional: This is a well developed, well nourished patient who is awake, alert, sb4 and in no acute distress. Head/Face: Normocephalic, atraumatic. Eyes: Extra-ocular motions intact. Periorbital areas with no swelling, redness, or edema. ENT: Mucous membranes moist. Cardiovascular: Regular rate and rhythm with a normal S1 and S2. Respiratory: No increased work of breathing, no retractions or nasal flaring. Abdomen/GI: Soft, non-tender, no distension. Skin: Warm, dry with normal turgor. Normal color with no rashes, no lesions, and no evidence of cellulitis. Vital Signs: 19:04 BP 181 / 107; Pulse 89; Resp 20; Temp 98.5; Pulse Ox 100% ; Weight 95.25 kg; Height 5 jj7 ft. 9 in. ; Pain 3/10; 20:54 BP 173 / 91; Pulse 77; Resp 17 S; Pulse Ox 100% on R/A; lg3 19:04 Body Mass Index 31.01 (95.25 kg, 175.26 cm) jj7 19:04 Pain Scale: Adult jj7 MDM: 18:49 Medical Screening Exam initiated sb4 20:37 Data reviewed: vital signs, nurses notes, lab test result(s), radiologic studies, and sb4 as a result, I will discharge patient. Management of patient was discussed with the following: Museum Curator: Dr. Arellano, will see patient outpatient . Counseling: I had a detailed discussion with the patient and/or guardian regarding the historical points, exam findings, and any diagnostic results supporting the discharge/admit diagnosis, lab results, radiology results, the need for outpatient follow up, a urologist, to return to the emergency department if symptoms worsen or persist or if there are any questions or concerns that arise at home. 11/12 19:15 Order name: CBC with Diff; Complete Time: 19:45 sb4 11/12 19:15 Order name: CMP; Complete Time: 20:31 sb4 11/12 19:15 Order name: Lipase; Complete Time: 20:31 sb4 11/12 19:15 Order name: Urinalysis w/ reflexes; Complete Time: 19:57 sb4 11/12 19:40 Order name: Stone Protocol; Complete Time: 20:04 EDMS 11/12 19:15 Order name: Labs collected and sent; Complete Time: 19:33 sb4 Administered Medications: 20:41 Not Given (Physician Discretion): TORadol - [id number] mg IVP once sb4 20:41 Not Given (Physician Discretion): ondansetron 4 mg IVP once; over 2 minutes sb4 20:41 Not Given (Physician Discretion): ns 0.9% 1000 ml IV at 1 bolus Per protocol; to be sb4 given as a bolus over 60 minutes Disposition Summary: 11/12/24 20:39 Discharge Ordered Notes: Location: Home sb4 Problem: new sb4 Symptoms: are unchanged sb4 Condition: Stable sb4 Diagnosis - Calculus of kidney with calculus of ureter sb4 Followup: sb4 - With: Elroy Arellano MD - When: 2 - 3 days - Reason: Recheck today's complaints, Re-evaluation by your physician Discharge Instructions: - Discharge Summary Sheet sb4 - Kidney Stones sb4 Forms: - Prescription Opioid Use sb4 - Patient Portal Instructions sb4 - Leadership Thank You Letter sb4 Prescriptions: - ketorolac 10 mg Oral tablet - take 1 tablet ORAL route every 6 hours for 3 days as needed for pain; 12 sb4 tablet; Refills: 0, Product Selection Permitted - Tramadol 50 mg Oral Tablet - take 1 tablet ORAL route every 8 hours as needed; 12 tablet; Refills: 0, sb4 Product Selection Permitted Signatures: Dispatcher [employer] Mateusz Hernandez RN RN jjIman Munroe PA-C PA-C sb4 Corrections: (The following items were deleted from the chart) 19:15 19:15 Abdomen Pelvis Wo Con+CT.RAD.BRZ ordered. EDMS EDMS 20:41 19:15 IV Saline Lock ordered. sb4 sb4
[2024-11-12 21:01] VITALS: TEMP 98.5; O2SAT 100
[2024-11-12 21:03] VITALS: BP 173/91
== END 2024-11-12 20:57 | disposition home or self-care (01) ==
LOC: ER 18:47
DX: N20.2 Calculus of kidney with calculus of ureter (principal); I10 Essential (primary) hypertension; E11.9 Type 2 diabetes mellitus without complications; E78.00 Pure hypercholesterolemia, unspecified
CPT/HCPCS: 36415; 74176; 76377; 80053; 81001; 83690; 85025; 99283

== ENCOUNTER 2024-12-01 09:56 | Day surgery (SDC) | payer OTHER ==
[2024-11-24 15:56] LABS: PT Prothrombin Time 15.7 SECONDS (10-13.0); PTT, Activated Partial Thromb 38.4 SECONDS (27.2-37.4); Protime INR 1.4
[2024-12-01] MEDS: NA CHLORIDE 0.9% 1,000 ML ONE (10:15)
[2024-12-01 10:36] LABS: PTT, Activated Partial Thromb 29.8 SECONDS (27.2-37.4); Protime INR 1.06
[2024-12-01] MEDS ORDERED: propofoL 200 MG/20 ML VIAL IV ONE (11:18)
[2024-12-01] MEDS ORDERED: MIDAZOLAM HCL 2 MG/2 ML INJ ONE (11:18)
[2024-12-01] MEDS ORDERED: ONDANSETRON 4 MG/2 ML VIAL ONE (11:18)
[2024-12-01] MEDS ORDERED: FENTANYL CITR 100 MCG/2 ML ONE (11:18)
[2024-12-01] MEDS ORDERED: LIDOCAINE 1% MPF 5 ML VIAL ONE (11:26)
[2024-12-01] MEDS: CEFAZOLIN SODIUM 2 GM/VIAL ONE (12:12)
[2024-12-01 12:42] VITALS: O2SAT 100
[2024-12-01] MEDS ORDERED: EPHEDRINE SULF 50 MG/ML VIAL ONE (12:52)
[2024-12-01] MEDS ORDERED: GLYCOPYRROLATE 0.2 MG/ML SYR ONE (13:00)
--- NOTE | 2024-12-01 13:17 | P.OP ---
Date of Service: 12/01/24 Preoperative diagnoses: Left ureterolithiasis -5 mm Left flank pain Gross hematuria s/p robot-assisted laparoscopic radical prostatectomy Adenocarcinoma the prostate Postoperative diagnoses: Left ureterolithiasis -5 mm Left flank pain Gross hematuria Urethral stricture disease s/p robot-assisted laparoscopic radical prostatectomy Adenocarcinoma the prostate Principal procedures: Cystoscopy Sequential urethral dilation over a wire Left retrograde pyelography Left attempted semirigid ureteroscopy Left 7 Albanian by 26 cm double-J ureteral stent placed Complex 20 Albanian tuolumne tipped urethral Harrison catheter placement over a wire Indication for procedure: Mr. Ryder is a 64-year-old gentleman well-known to me with a history of prostate cancer status post radical prostatectomy done robotically. He had a history of some urethral stricture disease that was managed intraoperatively during the radical prostatectomy, but he developed an obstructing left ureteral calculus and despite an attempted spontaneous passage, was having persistence in the left flank that radiated into the left lower quadrant pain. This was also associated with gross hematuria. Procedure note: The patient was consented in the preoperative holding area before being transferred to the operative suite where general anesthesia was induced. He was given Ancef 2 g IV antimicrobial prophylaxis, and pneumoboots were provided for DVT prophylaxis. He was placed in the lithotomy position, padded and secured to the table appropriately. His genitalia was prepped with Hibiclens and he was draped in standard fashion. The case has begun using a 22 Albanian rigid cystoscope to attempt to traverse the urethra and into his bladder, but within the perineal bulbar urethra, at least 2 areas of urethral narrowing were encountered that resulted in a partial development of a mucosal flap necessitating placement of a Bentson guidewire via the urethra, putatively coiling it in his bladder. I then utilized sequential dilators to dilate the urethra from 20 Albanian to 24 Albanian, meeting some resistance at the proximalmost extent of the tip of the dilator, suspecting it was not properly entering the bladder. However after 24 Albanian dilation had taken place, I then left the wire in place and passed the cystoscope alongside at this time I was able to navigate beyond the areas of stricture narrowing in the perineal bulbar urethra and ultimately through the striated sphincter on the way toward the bladder. Unfortunately, there were areas of false passage that undermine the mucosa at the bladder neck. I was able to look over this and ultimately entering into the bladder which I decompressed of fluid and urine. The ureteral orifices were orthotopic in location; so I visualized the left ureteral orifice and thought I could appreciate the tip of the calculus at the opening. I thus passed a 5 Albanian ureteral access catheter via the cystoscope into the tip of the left ureteral orifice and performed a retrograde pyelogram. Left retrograde pyelography: Using a 70: 30 mixture of Omnipaque and saline, contrast did progress up the distal into the mid and proximal ureter before entering the renal pelvis and calyces on the left side. There was some delayed propagation of contrast suggestive of obstruction. I then passed the sensor wire via the 5 Albanian ureteral access catheter into the ureteral orifice and navigated into the collecting system as evidenced fluoroscopically. I then remove the cystoscope and performed direct vision semirigid ureteroscopy alongside the wire ultimately entering the bladder. I visualized the ureteral orifice and attempted to gain access into the ureteral orifice with the semirigid ureteroscope, but the orifice was somewhat stenotic. As a result, I passed a Bentson guidewire via the semirigid ureteroscope into the ureteral orifice and passed it putatively into the collecting system with ease. As I surveyed bypassing the semirigid ureteroscope over the wire into the orifice, I observed that it did pass up under a flap of mucosa; so I removed the wire and repositioned it into the orthotopic intraluminal space alongside the sensor wire and ultimately into the collecting system. I then further attempted to pass the semirigid ureteroscope into the distal ureter in order to visualize the stone, but it was so stenotic that this was aborted. As a result, I removed the semirigid ureteroscope and instead backloaded the cystoscope over the sensor safety wire after having remove the Bentson guidewire from the ureter and repositioning it within the bladder lumen. I then passed a 7 Albanian by 26 cm double-J ureteral stent over the sensor wire all the way into the collecting system and upper pole calyx as evidenced fluoroscopically on the left with an additional coil cystoscopically formed in his bladder. I then removed the cystoscope leaving the stent in place and passed a 20 Albanian tuolumne tip Harrison catheter over the Bentson guidewire successfully into his bladder with relative ease. This did decompress the bladder of fluid and urine and was connected to a leg bag. He was then taken out of the lithotomy position, awakened from general anesthesia, transferred to a stretcher, and then transferred to the recovery room in good condition. Complications: Posterior bladder neck false passage Discharge disposition: I would like for him to keep the 20 Albanian urethral Harrison catheter in place for the next 7 days to allow healing of the false passage and dilation of the urethral stricture disease. I will send prophylactic nitrofurantoin for him to take while the catheter is in place. We will need to reschedule him for return operative cystoscopy with left ureteroscopy, possible laser lithotripsy, and left ureteral stent exchange in approximately 2-3 weeks.
--- NOTE | 2024-12-01 13:20 | RAD REPORT ---
Fluoroscopy time 9 seconds
[2024-12-01] MEDS ORDERED: PHENAZOPYRIDINE 100MG TAB PO ONE (14:00)
[2024-12-01] MEDS ORDERED: CODEINE 30MG/APAP 300MG TAB ONE (14:15)
[2024-12-01] MEDS: CODEINE 30MG/APAP 300MG TAB PO PRN (14:20)
[2024-12-01 15:32] VITALS: BP 166/78; TEMP 97
== END 2024-12-01 15:15 | disposition home or self-care (01) ==
LOC: OR 09:56
PROVIDERS: ATTEND Urology
PROC: 0T778DZ Dilation of Left Ureter with Intraluminal Device, Via Natural or Artificial Opening Endoscopic (ICD-10-PCS; principal; 2024-12-01 11:45)
DX: N20.1 Calculus of ureter (principal); R10.9 Unspecified abdominal pain; R31.0 Gross hematuria; N20.0 Calculus of kidney; Z85.46 Personal history of malignant neoplasm of prostate
CPT/HCPCS: 87088; 87086; 36415 ×2; 85610 ×2; 82947 ×2; 85730 ×2; 74450; 51610; 52281; 52332; 52351; J2704; J2003; J2250; J3010; J2405; J7030

== ENCOUNTER 2024-12-15 07:35 | Day surgery (SDC) | payer OTHER ==
[2024-12-07 12:05] LABS: Absolute Eosinophils 0.2 K/uL (0-0.5); Absolute Monocytes 0.5 K/uL (0.1-1.3); Absolute Neutrophil 4.5 K/uL (1.8-8.0); Basophils % 0.4 % (0-1.3); Eosinophils % 3.4 % (0-4.4); Hematocrit 35.9 % (39.6-49.0); Hemoglobin 12.3 g/dL (13.6-17.9); Lymphocytes % 15.8 % (15.3-44.8); MCH 30.7 pg (27.0-35.0); MCHC 34.2 g/dL (32.0-36.0); MCV 89.9 fL (80-100); MPV 8.3 fL (7.6-11.3); Monocytes % 7.6 % (3.3-12.3); Neutrophils % 72.8 % (41.7-73.7); Nucleated Red Blood Cells % 0.1 % (0-0); Platelets 166 thou/uL (152-406); RBC Red Blood Cell Count 3.99 M/uL (4.33-5.43); Red Cell Distribution Width 14.3 % (12.1-15.2)
[2024-12-07 12:11] LABS: Protime INR 1.24
[2024-12-15] MEDS ORDERED: FENTANYL CITR 100 MCG/2 ML ONE (08:02)
[2024-12-15] MEDS ORDERED: ONDANSETRON 4 MG/2 ML VIAL ONE (08:02)
[2024-12-15] MEDS ORDERED: MIDAZOLAM HCL 2 MG/2 ML INJ ONE (08:02)
[2024-12-15] MEDS ORDERED: propofoL 200 MG/20 ML VIAL IV ONE (08:02)
[2024-12-15] MEDS ORDERED: LIDOCAINE 1% MPF 5 ML VIAL ONE (08:02)
[2024-12-15] MEDS: NA CHLORIDE 0.9% 1,000 ML ONE (08:15)
[2024-12-15] MEDS: GENTAMICIN 80 MG/100 ML BAG 240 MG/300 ML BAG IV ONE (08:35)
[2024-12-15] MEDS: AMPICILLIN SODIUM 2 GM/VIAL VIAL ONE (08:54)
[2024-12-15] MEDS ORDERED: dexAMETHasone 10 MG/ML VIAL ONE (08:57)
[2024-12-15] MEDS ORDERED: GLYCOPYRROLATE 0.2 MG/ML SYR ONE (09:01)
[2024-12-15] MEDS ORDERED: PHENAZOPYRIDINE 100MG TAB PO ONE (09:46)
[2024-12-15] MEDS ORDERED: HYDROCODONE/APAP 5/325 MG TAB PO PRN (09:46)
--- NOTE | 2024-12-15 10:06 | P.OP ---
Date of Service: 12/15/24 Preoperative diagnoses: Left ureterolithiasis 5 mm s/p left ureteral stent placement 12/01/2024 Urethral stricture disease s/p urethral dilation Posterior urethral false passage Postoperative diagnoses: Left ureterolithiasis 5 mm s/p left ureteral stent placement 12/01/2024 Urethral stricture disease s/p urethral dilation Posterior urethral false passage Principal procedures: Cystoscopy Sequential urethral dilation over a wire Left retrograde pyeloscopy Left ureteroscopy with pyeloscopy and laser lithotripsy Left 7 Afghan by 26 cm double-J ureteral stent exchange Indication for procedure: 64-year-old gentleman with history of prostate cancer s/p radical prostatectomy presented with obstructive ureterolithiasis underwent left ureteral stent placement with urethral dilation a couple of weeks ago. Unfortunately, in the process of dilating the urethra, the posterior urethral false passage was created. The patient kept a catheter for 7 days to allow the urethra to hopefully stabilize in an open configuration but also to allow time for the false passage to try to heal and for the stent to dilate the stenotic distal ureter before presenting today for definitive management of the ureteral obstructing stone. Procedure note: The patient was consented in the preoperative holding area before being transferred to the operative suite where general anesthesia was induced. He was given ampicillin 2 g and gentamicin 240 mg IV antimicrobial prophylaxis, and pneumoboots were provided for DVT prophylaxis. He was placed in the lithotomy position, padded and secured to the table appropriately, and his genitalia was prepped with Hibiclens before being draped in standard fashion. The case was begun using a 22 Afghan rigid cystoscope to enter the meatus and navigate through the urethra until within the distal perineal aspect of the urethra, an area of stricture narrowing was present that would prohibit passage of the 22.5 Afghan cystoscope. As a result, I passed a Instant AVson guidewire under direct vision via the urethra coiling it in his bladder as evidenced fluoroscopically. I then remove the cystoscope leaving the wire in place and used S curved dilators at this time to dilate over the wire to the maximum available in the set of 20 Afghan. This was done easily and with drainage of bladder urine via the dilator. I then removed the dilator and this time used a smaller sized sheath, 21 Afghan, to navigate beyond the area of urethral stricture ultimately through the proximal urethra where I observed the mucosalized posterior urethral false passage. I navigated above this into the bladder which I decompressed of fluid and urine and observed the presence of the left ureteral stent. I used an alligator grasper to grasp the tip of the stent and deliver it to the meatus leaving the proximal tip in the proximal ureter. I advanced a sensor wire via the stent ultimately into the proximal ureter but it did not go into the putative renal pelvis. As such, I advanced a dual-lumen catheter over the sensor wire into the mid ureter and performed a retrograde pyelography study. Left retrograde pyelogram: Using a 70: 30 mixture of Omnipaque and saline, contrast mixture was injected via the second lumen of the dual-lumen catheter and did navigate into the proximal ureter and renal pelvis and calyces, which were filled without any sign of filling defect or significant hydronephrosis. As a result, I advanced the sensor wire this time all the way into the collecting system as evidenced fluoroscopically, and I advanced a Bentson guidewire via the second lumen of the dual-lumen catheter also into the upper pole collecting system. I then remove the dual-lumen catheter leaving the wires in place and advanced a flexible ureteroscope over the Bentson guidewire all the way into the upper pole of the collecting system. I then surveyed through the upper and mid and lower pole calyces and did not identify a stone. I injected contrast again and delineated each of the calyces and ensured that each of them had been adequately visualized before confirming that no stones were indeed present within the collecting system. As a result, I retracted the ureteroscope down the proximal into the mid and distal ureter before encountering a point of granular difficulty retracting the ureteroscope suggestive of the presence of the ureteral stone, which indeed was present in the distal ureter within a couple of centimeters of the ureteral orifice. As a result, I remove the flexible ureteroscope and instead exchanged it for a semirigid ureteroscope passed via his urethra into his bladder and into the left ureteral orifice ultimately finding the ureteral calculus. The calculus was slightly impacted posterior laterally within the ureter with a slight mucosal flap created. As a result, I utilized a 272 nm laser fiber at a power setting of 0.8 J and 10 Hz to quickly fragment that stone into dust. I assisted all of those dust fragments to pass out of the ureteral orifice into the bladder and then discontinued ureteroscopy and laser lithotripsy. I then backloaded the cystoscope over the indwelling sensor safety wire after removing the ureteroscope, and then I placed a 7 Afghan by 26 cm double-J ureteral stent over the wire ultimately into the collecting system with a coil observed fluoroscopically in the upper pole and 1 cystoscopically formed in the bladder. I then decompressed his bladder fluid and urine, collecting some of the stone dust in the process from within. This was sent for chemical analysis. I then remove the cystoscope and took the patient out of the lithotomy position. He was then awakened from general anesthesia before being transferred to a stretcher. He was then transferred to the recovery room in good condition. Complications: None Discharge disposition: Given the slight injury to the ureteral mucosa, I would like for the stent to remain in place for approximately 2 weeks, after which he may be scheduled to have it removed cystoscopically in the office. As a recurrent stone former, subsequent metabolic stone profile assessment may well be required to decrease the risk of future stone event.
[2024-12-15 11:47] VITALS: BP 122/67; TEMP 97.2; O2SAT 99
--- NOTE | 2024-12-15 16:56 | RAD REPORT ---
EXAM: Fluoroscopy use, Urethrocystogrphy Retrograde HISTORY: LEFT STENT 0.26 COMPARISON: None FINDINGS: A total of 20 images were sent to PACS, during a fluoroscopically guided left ureteral sten t placement. No radiologist was involved in protocoling or performance of the study, and no radiologist was present for the duration of the procedure. No interpretation of the saved images will be provided. Total fluoroscopy time: 0.26 minutes. IMPRESSION: Documentation of fluoroscopy use as above.
== END 2024-12-15 11:00 | disposition home or self-care (01) ==
LOC: OR 07:35
PROVIDERS: ATTEND Urology
PROC: 0T778DZ Dilation of Left Ureter with Intraluminal Device, Via Natural or Artificial Opening Endoscopic (ICD-10-PCS; 2024-12-15)
PROC: 0TF78ZZ Fragmentation in Left Ureter, Via Natural or Artificial Opening Endoscopic (ICD-10-PCS; principal; 2024-12-15 08:45)
DX: N20.0 Calculus of kidney (principal); N35.919 Unspecified urethral stricture, male, unspecified site; N36.5 Urethral false passage; Z85.46 Personal history of malignant neoplasm of prostate
CPT/HCPCS: 87088; 85025; 87086; 80048; 36415; 85610; 82947; 88300; 82360; 74450; 51610; 52356; 52281; J2704; J2003; J2250; J3010; J1100; J2405; J0290; J7030; J1580